=== PATIENT | male | born 1935 | race Caucasian/White ===

== ENCOUNTER → 2016-11-19 | Outpatient (CLI) | payer OTHER ==
[~2016-11-19] MED LIST: ACETYLCYST200 MG/1 M; ACYCLOVIR 800800 MG PO; ALDACTONE25 MG PO; AMBIEN 5 MG TABL5 M1 PO; AUGMENTIN 875-1 EACH PO; BACTRIM DS TAB1 EACH PO; COUMADIN; COUMADIN 5 MG TA5 M1 PO; COUMADIN7.5 MG PO; FOSAMAX 70 MG T70 MG PO; IRON325 PO; ISENTRESS100 MG PO; KLOR-CON 1010 MEQ PO; LASIX 20 MG TAB20 MG PO; LASIX 80 MG TAB80 MG PO; LEVAQUIN 250 M250 MG PO; MEXILETINE 150150 MG PO; NORPACE PO; NORVIR100 MG PO; OMEPRAZOLE20 MG PO; PACERONE 200 M200 M1 PO; PREZISTA600 MG PO; SOTALOL 120 MG120 M1 PO; TOPROL XL25 MG PO; TOPROL XL50 MG PO; TUMS E.S.750 MG PO; VIREAD300 MG PO
== END ==
LOC: CAT 13:01
DX: K44.9 Diaphragmatic hernia without obstruction or gangrene (principal); R07.9 Chest pain, unspecified